=== PATIENT | female | born 1970 | race Asian ===

== ENCOUNTER 2020-06-08 18:33 | Emergency (ER) | payer OTHER ==
[~2020-06-08] VITALS: Ht 162.6 cm; Wt 68.2 kg
[2020-06-08] MEDS ORDERED: LOSA-30 PO (18:55)
[2020-06-08 19:45] VITALS: BP 139/76
[2020-06-08] MEDS ORDERED: KETOROLAC TROMETHAMINE 30 MG/ML VIAL IM ONE (19:45)
== END 2020-06-08 20:00 | disposition home or self-care (01) ==
LOC: EMS 18:33
DX: M75.02 Adhesive capsulitis of left shoulder (principal); I10 Essential (primary) hypertension
CPT/HCPCS: 96372; 99283; J1885

== ENCOUNTER → 2020-06-10 | Outpatient (CLI) | payer OTHER ==
[~2020-06-10] MED LIST: LOSA-30 PO
== END | disposition home or self-care (01) ==
LOC: RADMN 14:05
PROVIDERS: ATTEND Family Medicine
DX: M25.512 Pain in left shoulder (principal); I70.0 Atherosclerosis of aorta
CPT/HCPCS: 73030-TC

== ENCOUNTER → 2020-10-13 | Outpatient (CLI) | payer OTHER | END | disposition home or self-care (01) | LOC: RADPV 13:42 | PROVIDERS: ATTEND Family Medicine | DX: M65.811 Other synovitis and tenosynovitis, right shoulder (principal) | CPT/HCPCS: 73030-TC; 73080-TC; 73110-TC; 73130-TC ==

== ENCOUNTER 2022-09-27 18:09 | Emergency (ER) | payer OTHER ==
[~2022-09-27] VITALS: Ht 157.5 cm; Wt 80.5 kg
[2022-09-27] MEDS ORDERED: LOSA100T59 PO (18:19)
[2022-09-27 18:20] VITALS: TEMP 98.7
[2022-09-27] MEDS ORDERED: IBUP-1492 PO (20:30)
[2022-09-27] MEDS ORDERED: IBUPROFEN 600 MG TABLET PO ONE (20:30)
[2022-09-27 20:51] VITALS: BP 165/99; PULSE 78; RESP 18
== END 2022-09-27 20:59 | disposition home or self-care (01) ==
LOC: EMS 18:27
DX: S76.011A Strain of muscle, fascia and tendon of right hip, initial encounter (principal); I10 Essential (primary) hypertension; X58.XXXA Exposure to other specified factors, initial encounter; Y93.89 Activity, other specified; Y92.89 Other specified places as the place of occurrence of the external cause; Y99.8 Other external cause status
CPT/HCPCS: 99282; Z7502; Z7610

== ENCOUNTER 2023-10-10 18:30 | Emergency (ER) | payer OTHER ==
[~2023-10-10] VITALS: Ht 160 cm; Wt 81.8 kg
[~2023-10-10 18:30] MED LIST changes: +IBUP-1492 PO; -LOSA-30 PO; +LOSA100T59 PO
[2023-10-10] MEDS ORDERED: FERR325T23 PO (18:36)
[2023-10-10] MEDS ORDERED: AMLO5TAB66 PO (18:36)
[2023-10-10 18:42] LABS: COVID AG,FIA SOURCE NASAL SWAB
[2023-10-10 19:10] LABS: INFLUENZA TYPE A NEGATIVE FOR TYPE A (NEGATIVE); INFLUENZA TYPE B NEGATIVE FOR TYPE B (NEGATIVE); SARS-COV2 (COVID) ANTIGEN,FIA Negative (Negative)
[2023-10-10 20:38] LABS: BASOPHILS % (AUTO) 0.8 % (0.0-2.0); EOSINOPHILS % (AUTO) 4.3 % (1.0-6.0); HEMATOCRIT 40.6 % (36-46); HEMOGLOBIN 13.1 g/dL (12.0-16.0); LYMPHOCYTES # (AUTO) 1.3 K/uL (1.0-4.8); MEAN CORPUSCULAR HEMOGLOBIN 29.4 pg (26.0-34.0); MEAN CORPUSCULAR HGB CONC 32.3 G/dL (31.0-37.0); MEAN CORPUSCULAR VOLUME 91 fL (80-100); MONOCYTES # (AUTO) 0.6 K/uL (0.1-1.0); MONOCYTES % (AUTO) 10.8 % (2.0-9.0); NEUTROPHILS # (AUTO) 3.8 K/uL (1.8-7.7); NEUTROPHILS % (AUTO) 63.1 % (40.0-70.0); PLATELET COUNT (AUTO) 445 K/uL (150-450); RED BLOOD CELL COUNT(AUTO) 4.47 MIL/uL (4.00-5.20); RED CELL DISTRIBUTION WIDTH 13.2 % (11.5-14.5)
[2023-10-10 20:48] LABS: ANION GAP 8 mmol/L (8-16); CALCIUM, TOTAL 9.5 mg/dL (8.8-10.5); CARBON DIOXIDE 31 mmol/L (22-29); CHLORIDE 103 mmol/L (98-107); CREATININE 0.82 mg/dL (0.60-1.30); GLOMERULAR FILTR. RATE CALC > 60 mL/min (>60); GLUCOSE,RANDOM 88 mg/dL (70-110); POTASSIUM 3.7 mmol/L (3.5-5.1); SODIUM SERUM 142 mmol/L (136-145); UREA NITROGEN, BLOOD 20 mg/dL (7-18)
[2023-10-10 20:58] LABS: TROPONIN I-HIGH SENSITIVITY 8 ng/L (<51)
[2023-10-10 21:09] VITALS: BP 141/85; PULSE 75; RESP 15; TEMP 98
[2023-10-10 21:10] LABS: FREE T4 (FREE THYROXINE) 1.04 ng/dL (0.76-1.46)
[2023-10-10] MEDS ORDERED: IBUP-1554 PO (21:35)
[2023-10-10] MEDS ORDERED: ACET-66 PO (21:35)
== END 2023-10-10 21:44 | disposition home or self-care (01) ==
LOC: EMS 18:30
DX: R51.9 Headache, unspecified (principal); I10 Essential (primary) hypertension; Z20.822 Contact with and (suspected) exposure to COVID-19
CPT/HCPCS: 71045; 80048; 84439; 84443; 84484; 85025; 87804; 99284; 36415-L1; 36415-TC

== ENCOUNTER 2024-08-06 16:01 | Inpatient (IN) | payer OTHER ==
[~2024-08-06] VITALS: Ht 154.9 cm; Wt 100.7 kg
[~2024-08-06 16:01] MED LIST changes: +ACET-66 PO; +AMLO5TAB66 PO; +FERR325T23 PO; -IBUP-1492 PO; +IBUP-1554 PO
[2024-08-06 17:12] LABS: ANION GAP 3 mmol/L (8-16); CALCIUM, TOTAL 8.8 mg/dL (8.8-10.5); CARBON DIOXIDE 31 mmol/L (22-29); CHLORIDE 106 mmol/L (98-107); CREATININE 0.72 mg/dL (0.60-1.30); GLOMERULAR FILTR. RATE CALC > 60 mL/min (>60); GLUCOSE,RANDOM 99 mg/dL (70-110); POTASSIUM 3.5 mmol/L (3.5-5.1); SODIUM SERUM 140 mmol/L (136-145); UREA NITROGEN, BLOOD 13 mg/dL (7-18)
[2024-08-06 17:13] LABS: BASOPHILS % (AUTO) 0.5 % (0.0-2.0); HEMATOCRIT 40.2 % (36-46); HEMOGLOBIN 13.3 g/dL (12.0-16.0); LYMPHOCYTES % (AUTO) 17.3 % (22.0-44.0); MEAN CORPUSCULAR HEMOGLOBIN 28.4 pg (26.0-34.0); MEAN CORPUSCULAR VOLUME 86 fL (80-100); MONOCYTES # (AUTO) 0.7 K/uL (0.1-1.0); MONOCYTES % (AUTO) 11.3 % (2.0-9.0); NEUTROPHILS # (AUTO) 3.9 K/uL (1.8-7.7); NEUTROPHILS % (AUTO) 65.9 % (40.0-70.0); PLATELET COUNT (AUTO) 441 K/uL (150-450); RED BLOOD CELL COUNT(AUTO) 4.68 MIL/uL (4.00-5.20); RED CELL DISTRIBUTION WIDTH 12.7 % (11.5-14.5)
[2024-08-06 17:20] LABS: TROPONIN I-HIGH SENSITIVITY 6 ng/L (<51)
[2024-08-06 20:15] LABS: TROPONIN I-HIGH SENSITIVITY 414 ng/L (<51)
[2024-08-06] MEDS ORDERED: HEPARIN SODIUM,PORCINE 5,000 UNITS/ML VIAL IVP ONE (20:45)
[2024-08-06] MEDS ORDERED: HEPARIN SODIUM,PORCINE 5,000 UNITS/ML VIAL IVP PRN ×2 (20:45)
[2024-08-06 21:13] LABS: BASOPHILS % (AUTO) 0.7 % (0.0-2.0); EOSINOPHILS % (AUTO) 4.9 % (1.0-6.0); HEMATOCRIT 43.8 % (36-46); HEMOGLOBIN 14.3 g/dL (12.0-16.0); LYMPHOCYTES # (AUTO) 1.4 K/uL (1.0-4.8); LYMPHOCYTES % (AUTO) 21.2 % (22.0-44.0); MEAN CORPUSCULAR HEMOGLOBIN 28.2 pg (26.0-34.0); MEAN CORPUSCULAR HGB CONC 32.7 G/dL (31.0-37.0); MEAN CORPUSCULAR VOLUME 86 fL (80-100); MONOCYTES # (AUTO) 0.6 K/uL (0.1-1.0); MONOCYTES % (AUTO) 9.8 % (2.0-9.0); NEUTROPHILS # (AUTO) 4.2 K/uL (1.8-7.7); NEUTROPHILS % (AUTO) 63.4 % (40.0-70.0); PLATELET COUNT (AUTO) 484 K/uL (150-450); RED BLOOD CELL COUNT(AUTO) 5.08 MIL/uL (4.00-5.20); RED CELL DISTRIBUTION WIDTH 12.9 % (11.5-14.5); WHITE BLOOD COUNT (AUTO) 6.6 K/uL (4.5-11.0)
[2024-08-06] MEDS: HEPARIN SODIUM,PORCINE 5,000 UNITS/ML VIAL IVP ONE (21:21)
[2024-08-06] MEDS: HEPARIN SODIUM 25000 UNITS/D5W 250 ML IV PRN (21:22)
[2024-08-06 21:23] LABS: PROTHROMBIN TIME 10.2 SEC (9.4-11.6)
[2024-08-06] MEDS ORDERED: HYDROCODONE/ACETAMINOPHEN 5-325 MG TABLET PO PRN (23:00)
[2024-08-06] MEDS ORDERED: MORPHINE SULFATE 2 MG/ML SYRINGE IVP PRN (23:00)
[2024-08-06] MEDS ORDERED: ONDANSETRON HCL 4 MG/2 ML VIAL IVP PRN (23:00)
[2024-08-06] MEDS ORDERED: ACETAMINOPHEN 325 MG TABLET PO PRN (23:00)
[2024-08-06] MEDS ORDERED: ZOLPIDEM TARTRATE 5 MG TABLET PO PRN (23:00)
[2024-08-06] MEDS ORDERED: MAGNESIUM HYDROXIDE SUSPENSION 30 ML UDCUP PO PRN (23:00)
[2024-08-06] MEDS ORDERED: BISACODYL 10 MG RECTAL RECTAL SUPPOSITORY PR PRN (23:00)
[2024-08-06] MEDS: NITROGLYCERIN 2% (1 GM=INCH) OINTMENT PACKET TP SCH (23:59)
[2024-08-07 01:43] LABS: TROPONIN I-HIGH SENSITIVITY 9 ng/L (<51)
[2024-08-07 04:00] VITALS: BP 148/73; PULSE 70; RESP 20; TEMP 97.7; O2SAT 97
[2024-08-07 06:36] LABS: BASOPHILS % (AUTO) 0.8 % (0.0-2.0); EOSINOPHILS % (AUTO) 5.5 % (1.0-6.0); HEMATOCRIT 39.4 % (36-46); HEMOGLOBIN 13.1 g/dL (12.0-16.0); LYMPHOCYTES # (AUTO) 1.8 K/uL (1.0-4.8); LYMPHOCYTES % (AUTO) 27.3 % (22.0-44.0); MEAN CORPUSCULAR HEMOGLOBIN 28.6 pg (26.0-34.0); MEAN CORPUSCULAR HGB CONC 33.4 G/dL (31.0-37.0); MEAN CORPUSCULAR VOLUME 86 fL (80-100); MONOCYTES # (AUTO) 0.6 K/uL (0.1-1.0); NEUTROPHILS # (AUTO) 3.7 K/uL (1.8-7.7); NEUTROPHILS % (AUTO) 56.4 % (40.0-70.0); PLATELET COUNT (AUTO) 452 K/uL (150-450); RED BLOOD CELL COUNT(AUTO) 4.59 MIL/uL (4.00-5.20); RED CELL DISTRIBUTION WIDTH 12.9 % (11.5-14.5); WHITE BLOOD COUNT (AUTO) 6.5 K/uL (4.5-11.0)
[2024-08-07 06:57] LABS: ANION GAP 6 mmol/L (8-16); CALCIUM, TOTAL 8.8 mg/dL (8.8-10.5); CARBON DIOXIDE 27 mmol/L (22-29); CHLORIDE 101 mmol/L (98-107); CREATININE 0.62 mg/dL (0.60-1.30); GLOMERULAR FILTR. RATE CALC > 60 mL/min (>60); GLUCOSE,RANDOM 97 mg/dL (70-110); POTASSIUM 3.2 mmol/L (3.5-5.1); SODIUM SERUM 134 mmol/L (136-145); UREA NITROGEN, BLOOD 10 mg/dL (7-18)
[2024-08-07 07:08] LABS: CHOL/HDL RATIO 3.5 (3.9-5.7)
[2024-08-07 07:14] LABS: TROPONIN I-HIGH SENSITIVITY 8 ng/L (<51)
[2024-08-07] MEDS ORDERED: NITROGLYCERIN 0.4 MG SUBLINGUAL TABLET #25 SL PRN (07:30)
[2024-08-07 08:00] VITALS: BP 142/80; PULSE 67; RESP 17; TEMP 97.7; O2SAT 98
[2024-08-07] MEDS: HEPARIN SODIUM,PORCINE 5,000 UNITS/ML VIAL SQ SCH (08:00)
[2024-08-07] MEDS: PANTOPRAZOLE SODIUM 40 MG DR TABLET PO SCH (09:00)
[2024-08-07] MEDS ORDERED: ATORVASTATIN CALCIUM 40 MG TABLET PO SCH (09:00)
[2024-08-07] MEDS: DOCUSATE SODIUM 100 MG CAPSULE PO SCH (09:00)
[2024-08-07] MEDS ORDERED: POTASSIUM CHL 10 MEQ/WATER 50 ML IV PRN (09:45)
[2024-08-07] MEDS: ASPIRIN 81 MG CHEWABLE TABLET PO SCH (10:01)
[2024-08-07] MEDS: ATORVASTATIN CALCIUM 20 MG TABLET PO SCH (10:01)
[2024-08-07] MEDS: POTASSIUM CHLORIDE 20 MEQ ER TABLET PO PRN (10:18)
[2024-08-07] MEDS ORDERED: SESTAMIBI TC99M/UD ISOTOPE 1 EA INJ INJ ONE ×2 (12:00→15:20)
[2024-08-07 12:15] VITALS: BP 143/87; PULSE 64; RESP 17; TEMP 98.1; O2SAT 98
[2024-08-07] MEDS: REGADENOSON 0.4 MG/5 ML PF SYRINGE IVP ONE (16:02)
[2024-08-07 16:23] VITALS: BP 148/75; PULSE 91; RESP 17; TEMP 98.2; O2SAT 98
[2024-08-07] MEDS ORDERED: REGADENOSON 0.4 MG/5 ML PF SYRINGE IVP ONE (16:38)
[2024-08-07] MEDS ORDERED: ASPI-1450 PO (17:55)
[2024-08-07] MEDS ORDERED: METO25 PO (17:55)
[2024-08-07] MEDS ORDERED: ATOR20TA65 PO (17:55)
[2024-08-07] MEDS ORDERED: METOPROLOL TARTRATE 25 MG TABLET PO SCH (21:00)
== END 2024-08-07 19:00 | disposition home or self-care (01) | DRG 282 ==
LOC: EMS 16:03 → EDH 08-07 00:28 → 5S 08-07 03:45 → UNDODISIN 08-07 15:30
PROVIDERS: ADMIT Internal Medicine; ATTEND Internal Medicine
DX: I21.4 Non-ST elevation (NSTEMI) myocardial infarction (principal); I11.0 Hypertensive heart disease with heart failure; D64.9 Anemia, unspecified; I50.9 Heart failure, unspecified; Z79.899 Other long term (current) drug therapy
CPT/HCPCS: 71045; 78452; 80048; 80061; 84132; 84484; 85025; 85610; 85730; 93005; 93306; 99285; A9500; J1644; J2785; 36415-L1; 36415-TC

== ENCOUNTER 2024-09-16 17:03 | Inpatient (IN) | payer OTHER ==
[~2024-09-16] VITALS: Ht 152.4 cm; Wt 77.3 kg
[~2024-09-16 17:03] MED LIST changes: -ACET-66 PO; -AMLO5TAB66 PO; +ASPI-1450 PO; +ATOR20TA65 PO; -FERR325T23 PO; -IBUP-1554 PO; -LOSA100T59 PO; +METO25 PO
[2024-09-16 19:15] LABS: BASOPHILS % (AUTO) 0.5 % (0.0-2.0); EOSINOPHILS % (AUTO) 1.8 % (1.0-6.0); HEMATOCRIT 35.6 % (36-46); HEMOGLOBIN 11.6 g/dL (12.0-16.0); LYMPHOCYTES % (AUTO) 10.9 % (22.0-44.0); MEAN CORPUSCULAR HEMOGLOBIN 27.6 pg (26.0-34.0); MEAN CORPUSCULAR HGB CONC 32.7 G/dL (31.0-37.0); MEAN CORPUSCULAR VOLUME 84 fL (80-100); MONOCYTES # (AUTO) 0.9 K/uL (0.1-1.0); MONOCYTES % (AUTO) 9.4 % (2.0-9.0); NEUTROPHILS # (AUTO) 7.2 K/uL (1.8-7.7); NEUTROPHILS % (AUTO) 77.4 % (40.0-70.0); PLATELET COUNT (AUTO) 677 K/uL (150-450); RED BLOOD CELL COUNT(AUTO) 4.22 MIL/uL (4.00-5.20); RED CELL DISTRIBUTION WIDTH 13.3 % (11.5-14.5); WHITE BLOOD COUNT (AUTO) 9.3 K/uL (4.5-11.0)
[2024-09-16 19:26] LABS: ANION GAP 5 mmol/L (8-16); CALCIUM, TOTAL 9.2 mg/dL (8.8-10.5); CARBON DIOXIDE 29 mmol/L (22-29); CHLORIDE 104 mmol/L (98-107); CREATININE 0.87 mg/dL (0.60-1.30); GLOMERULAR FILTR. RATE CALC > 60 mL/min (>60); GLUCOSE,RANDOM 113 mg/dL (70-110); SODIUM SERUM 138 mmol/L (136-145); UREA NITROGEN, BLOOD 9 mg/dL (7-18)
[2024-09-16 19:48] LABS: AMYLASE 37 U/L (25-115); HCG,QUANTITATIVE 2 mIU/mL (0-6); LIPASE 26 U/L (16-77)
[2024-09-16 21:02] LABS: APPEARANCE,URINE CLEAR (CLEAR); BILIRUBIN,URINE NEGATIVE (NEGATIVE); COLOR,URINE LIGHT YELLOW (YELLOW); GLUCOSE, URINE (UA) NEGATIVE (NEGATIVE); KETONES,URINE NEGATIVE (NEGATIVE); LEUKOCYTE ESTERASE ,URINE NEGATIVE (NEGATIVE); NITRATE,URINE NEGATIVE (NEGATIVE); OCCULT BLOOD,URINE SMALL (NEGATIVE); PROTEIN,URINE TRACE mg/dL (NEGATIVE); SPECIFIC GRAVITIY, URINE 1.011 (1.003-1.030); UROBILINOGEN,URINE <=1.0 mg/dL (<=1.0)
[2024-09-16 21:17] LABS: BACTERIA,URINE None Seen /HPF (None Seen); WBC,URINE 0-2 /HPF (0-5)
[2024-09-16 21:18] LABS: SQUAMOUS EPITHELIAL CELL,UR Moderate /LPF (None Seen)
[2024-09-16] MEDS ORDERED: IOHEXOL 350 MG/ML 100 ML VIAL ONE (22:38)
[2024-09-16] MEDS ORDERED: SODIUM CHLORIDE 0.9% 100 ML ONE (22:38)
[2024-09-16 22:40] LABS: ALBUMIN 2.9 g/dL (3.4-5.0); BILIRUBIN,DIRECT 0.1 mg/dL (0.00-0.20); BILIRUBIN,TOTAL 0.3 mg/dL (0.1-1.0); TOTAL PROTEIN, SERUM 7.6 g/dL (6.4-8.2)
[2024-09-17] MEDS: KETOROLAC TROMETHAMINE 30 MG/ML VIAL IVP ONE (00:01)
[2024-09-17] MEDS: PIPERACILLIN/TAZO 3.375 GM/D5W 50 ML IV ONE (05:55)
[2024-09-17] MEDS ORDERED: MORPHINE SULFATE 2 MG/ML SYRINGE IVP PRN (06:00)
[2024-09-17] MEDS ORDERED: ONDANSETRON HCL 4 MG/2 ML VIAL IVP PRN (06:00)
[2024-09-17] MEDS ORDERED: ZOLPIDEM TARTRATE 5 MG TABLET PO PRN (06:00)
[2024-09-17] MEDS ORDERED: BISACODYL 10 MG RECTAL RECTAL SUPPOSITORY PR PRN (06:00)
[2024-09-17] MEDS ORDERED: MAGNESIUM HYDROXIDE SUSPENSION 30 ML UDCUP PO PRN (06:00)
[2024-09-17] MEDS: SODIUM CHLORIDE 0.9% 1,000 ML IV ONE (06:29)
[2024-09-17] MEDS: HYDROCODONE/ACETAMINOPHEN 5-325 MG TABLET PO PRN (06:34)
[2024-09-17] MEDS: METOPROLOL TARTRATE 25 MG TABLET PO SCH (08:09)
[2024-09-17] MEDS: ATORVASTATIN CALCIUM 20 MG TABLET PO SCH (08:09)
[2024-09-17] MEDS: ASPIRIN 81 MG CHEWABLE TABLET PO SCH (08:09)
[2024-09-17] MEDS: PANTOPRAZOLE SODIUM 40 MG DR TABLET PO SCH (08:09)
[2024-09-17] MEDS: HEPARIN SODIUM,PORCINE 5,000 UNITS/ML VIAL SQ SCH (08:10)
[2024-09-17] MEDS: DOCUSATE SODIUM 100 MG CAPSULE PO SCH (08:11)
[2024-09-17] MEDS: PIPERACILLIN/TAZO 3.375 GM/D5W 50 ML IV SCH (11:24)
[2024-09-17 13:25] VITALS: BP 119/69; PULSE 66; RESP 20; TEMP 98.2; O2SAT 95
[2024-09-17 17:26] VITALS: BP 125/56; PULSE 77; RESP 20; TEMP 99.1; O2SAT 96
[2024-09-17] MEDS ORDERED: SODIUM CHLORIDE 0.9% 500 ML IV ONE (20:10)
[2024-09-17 20:19] VITALS: BP 107/58; PULSE 81; RESP 18; TEMP 99.3; O2SAT 99
[2024-09-17] MEDS: ACETAMINOPHEN 325 MG TABLET PO PRN (22:00)
[2024-09-18 04:51] VITALS: BP 115/56; PULSE 69; RESP 19; TEMP 98.4; O2SAT 95
[2024-09-18 08:14] LABS: BASOPHILS % (AUTO) 0.5 % (0.0-2.0); EOSINOPHILS % (AUTO) 0.7 % (1.0-6.0); HEMATOCRIT 35.2 % (36-46); HEMOGLOBIN 11.4 g/dL (12.0-16.0); LYMPHOCYTES # (AUTO) 1.1 K/uL (1.0-4.8); LYMPHOCYTES % (AUTO) 10.3 % (22.0-44.0); MEAN CORPUSCULAR HEMOGLOBIN 27.4 pg (26.0-34.0); MEAN CORPUSCULAR HGB CONC 32.3 G/dL (31.0-37.0); MEAN CORPUSCULAR VOLUME 85 fL (80-100); NEUTROPHILS # (AUTO) 8.1 K/uL (1.8-7.7); NEUTROPHILS % (AUTO) 78.5 % (40.0-70.0); PLATELET COUNT (AUTO) 621 K/uL (150-450); RED BLOOD CELL COUNT(AUTO) 4.16 MIL/uL (4.00-5.20); RED CELL DISTRIBUTION WIDTH 13.5 % (11.5-14.5); WHITE BLOOD COUNT (AUTO) 10.3 K/uL (4.5-11.0)
[2024-09-18 08:17] LABS: ANION GAP 7 mmol/L (8-16); CALCIUM, TOTAL 8.8 mg/dL (8.8-10.5); CARBON DIOXIDE 27 mmol/L (22-29); CHLORIDE 104 mmol/L (98-107); CREATININE 0.85 mg/dL (0.60-1.30); GLOMERULAR FILTR. RATE CALC > 60 mL/min (>60); GLUCOSE,RANDOM 92 mg/dL (70-110); POTASSIUM 3.9 mmol/L (3.5-5.1); SODIUM SERUM 138 mmol/L (136-145); UREA NITROGEN, BLOOD 8 mg/dL (7-18)
[2024-09-18 08:19] VITALS: BP 122/51; PULSE 74; RESP 18; TEMP 98.4; O2SAT 96
[2024-09-18 15:25] LABS: TROPONIN I-HIGH SENSITIVITY 4 ng/L (<51)
[2024-09-18 15:35] VITALS: BP 115/56; PULSE 66; RESP 18; TEMP 97.7; O2SAT 96
[2024-09-18 20:05] VITALS: BP 140/71; PULSE 77; RESP 20; TEMP 98.2; O2SAT 94
[2024-09-19 05:29] VITALS: BP 125/81; PULSE 78; RESP 18; TEMP 98.4; O2SAT 94
[2024-09-19 07:23] LABS: BASOPHILS % (AUTO) 0.4 % (0.0-2.0); HEMATOCRIT 32.7 % (36-46); HEMOGLOBIN 10.8 g/dL (12.0-16.0); LYMPHOCYTES # (AUTO) 0.8 K/uL (1.0-4.8); LYMPHOCYTES % (AUTO) 8.4 % (22.0-44.0); MEAN CORPUSCULAR HEMOGLOBIN 27.5 pg (26.0-34.0); MEAN CORPUSCULAR HGB CONC 32.9 G/dL (31.0-37.0); MEAN CORPUSCULAR VOLUME 83 fL (80-100); MONOCYTES # (AUTO) 0.9 K/uL (0.1-1.0); MONOCYTES % (AUTO) 9.1 % (2.0-9.0); NEUTROPHILS % (AUTO) 81.1 % (40.0-70.0); PLATELET COUNT (AUTO) 601 K/uL (150-450); RED BLOOD CELL COUNT(AUTO) 3.92 MIL/uL (4.00-5.20); RED CELL DISTRIBUTION WIDTH 13.2 % (11.5-14.5); WHITE BLOOD COUNT (AUTO) 9.9 K/uL (4.5-11.0)
[2024-09-19 07:30] LABS: ANION GAP 9 mmol/L (8-16); CALCIUM, TOTAL 8.6 mg/dL (8.8-10.5); CARBON DIOXIDE 26 mmol/L (22-29); CHLORIDE 102 mmol/L (98-107); CREATININE 0.68 mg/dL (0.60-1.30); GLOMERULAR FILTR. RATE CALC > 60 mL/min (>60); GLUCOSE,RANDOM 88 mg/dL (70-110); POTASSIUM 3.6 mmol/L (3.5-5.1); SODIUM SERUM 137 mmol/L (136-145); UREA NITROGEN, BLOOD 5 mg/dL (7-18)
[2024-09-19 08:05] VITALS: BP 147/64; PULSE 72; RESP 18; TEMP 98.2; O2SAT 97
[2024-09-19 16:41] VITALS: BP 129/77; PULSE 76; RESP 18; TEMP 98.2; O2SAT 96
[2024-09-19 20:12] VITALS: BP 123/73; PULSE 79; RESP 18; TEMP 97.9; O2SAT 97
[2024-09-20 05:33] VITALS: BP 120/61; PULSE 68; RESP 18; TEMP 98.1; O2SAT 99
[2024-09-20 07:48] LABS: BASOPHILS % (AUTO) 0.9 % (0.0-2.0); EOSINOPHILS % (AUTO) 1.6 % (1.0-6.0); HEMATOCRIT 34.2 % (36-46); HEMOGLOBIN 10.9 g/dL (12.0-16.0); LYMPHOCYTES # (AUTO) 1.2 K/uL (1.0-4.8); LYMPHOCYTES % (AUTO) 15.6 % (22.0-44.0); MEAN CORPUSCULAR HEMOGLOBIN 26.6 pg (26.0-34.0); MEAN CORPUSCULAR VOLUME 83 fL (80-100); MONOCYTES # (AUTO) 0.8 K/uL (0.1-1.0); MONOCYTES % (AUTO) 11.3 % (2.0-9.0); NEUTROPHILS # (AUTO) 5.2 K/uL (1.8-7.7); NEUTROPHILS % (AUTO) 70.6 % (40.0-70.0); PLATELET COUNT (AUTO) 646 K/uL (150-450); RED BLOOD CELL COUNT(AUTO) 4.11 MIL/uL (4.00-5.20); RED CELL DISTRIBUTION WIDTH 13.2 % (11.5-14.5); WHITE BLOOD COUNT (AUTO) 7.4 K/uL (4.5-11.0)
[2024-09-20 07:57] LABS: ANION GAP 8 mmol/L (8-16); CALCIUM, TOTAL 8.6 mg/dL (8.8-10.5); CARBON DIOXIDE 28 mmol/L (22-29); CHLORIDE 103 mmol/L (98-107); CREATININE 0.67 mg/dL (0.60-1.30); GLOMERULAR FILTR. RATE CALC > 60 mL/min (>60); GLUCOSE,RANDOM 92 mg/dL (70-110); POTASSIUM 3.7 mmol/L (3.5-5.1); SODIUM SERUM 139 mmol/L (136-145); UREA NITROGEN, BLOOD 5 mg/dL (7-18)
[2024-09-20 08:00] VITALS: BP 128/58; PULSE 65; RESP 18; TEMP 97.7; O2SAT 98
[2024-09-20 20:05] VITALS: BP 120/56; PULSE 73; RESP 18; TEMP 97.7; O2SAT 97
[2024-09-21 05:20] VITALS: BP 136/70; PULSE 65; RESP 18; TEMP 98.1; O2SAT 94
[2024-09-21 08:56] VITALS: BP 127/88; PULSE 68; RESP 18; TEMP 97.7; O2SAT 95
[2024-09-21] MEDS ORDERED: AMOX-457 PO (12:00)
== END 2024-09-21 15:56 | disposition home or self-care (01) | DRG 373 ==
LOC: EMS 17:03 → EDH 09-17 05:58 → 4E 09-17 13:13
PROVIDERS: ADMIT Internal Medicine; ATTEND Internal Medicine
DX: K35.33 Acute appendicitis with perforation, localized peritonitis, and gangrene, with abscess (principal); E78.5 Hyperlipidemia, unspecified; D64.9 Anemia, unspecified; I10 Essential (primary) hypertension; Z79.82 Long term (current) use of aspirin; Z79.899 Other long term (current) drug therapy
CPT/HCPCS: 74177; 76705; 76830; 76856; 80048; 80076; 81001; 82150; 83690; 84484; 84702; 85025; 86850; 86900; 86901; 99285; G0378; J1644; J1885; J2405; J2543; J7040; J7050

== ENCOUNTER → 2024-09-25 | Outpatient (CLI) | payer OTHER ==
[~2024-09-25] MED LIST changes: +AMOX-457 PO; +IOHEXOL 350 MG/ML 100 ML VIAL ONE; +SODIUM CHLORIDE 0.9% 100 ML ONE
== END | disposition home or self-care (01) ==
LOC: RADMN 08:32
PROVIDERS: ATTEND Surgery
DX: K57.30 Diverticulosis of large intestine without perforation or abscess without bleeding (principal); K76.0 Fatty (change of) liver, not elsewhere classified; K80.20 Calculus of gallbladder without cholecystitis without obstruction; K44.9 Diaphragmatic hernia without obstruction or gangrene; K42.9 Umbilical hernia without obstruction or gangrene; K35.80 Unspecified acute appendicitis; K36 Other appendicitis; J98.4 Other disorders of lung; D25.9 Leiomyoma of uterus, unspecified
CPT/HCPCS: 74177; Q9967; J7050

== ENCOUNTER 2024-10-23 08:47 | Day surgery (SDC) | payer OTHER ==
[~2024-10-23] VITALS: Ht 154.9 cm; Wt 81.8 kg
[~2024-10-23 08:47] MED LIST changes: -IOHEXOL 350 MG/ML 100 ML VIAL ONE; +SODIUM CHLORIDE 0.9% 1,000 ML ONE; -SODIUM CHLORIDE 0.9% 100 ML ONE
[2024-10-23] MEDS ORDERED: ASPI-1450 PO (09:27)
[2024-10-23] MEDS ORDERED: METO25 PO (09:27)
[2024-10-23] MEDS ORDERED: ATOR20TA PO (09:27)
[2024-10-23] MEDS: SODIUM CHLORIDE 0.9% 1,000 ML IV ONE (09:34)
[2024-10-23] MEDS ORDERED: PROPOFOL 1% 20 ML VIAL IVP ONE (12:00)
[2024-10-23] MEDS ORDERED: GLYCOPYRROLATE 0.2 MG/ML VIAL ONE (12:00)
[2024-10-23] MEDS ORDERED: LIDOCAINE/PF 2% 5 ML VIAL ONE (12:00)
== END 2024-10-23 13:00 | disposition home or self-care (01) ==
LOC: SURGERY 08:47
PROVIDERS: ATTEND Surgery
DX: K36 Other appendicitis (principal); D12.4 Benign neoplasm of descending colon; I10 Essential (primary) hypertension; D64.9 Anemia, unspecified; E66.01 Morbid (severe) obesity due to excess calories; Z68.34 Body mass index [BMI] 34.0-34.9, adult; Z79.899 Other long term (current) drug therapy
CPT/HCPCS: 45385; 88305; J2704; J3490 ×2; J7030